=== PATIENT | female | born 1960 | race Caucasian/White ===

== ENCOUNTER 2019-05-09 09:42 | Outpatient (CLI) | payer OTHER, SELFPAY ==
--- NOTE | 2019-05-09 09:50 | XR_ITS ---
WS: [id number] CHEST 2 VIEWS HISTORY: RIB PAIN, LEFT SIDED, PNEUMONIA COMPARISON: 05/12/2015 Lungs: Lung volumes are significantly decreased. There is mild haziness over both lungs. No dense are a of consolidation. No pleural effusion or pneumothorax. Cardiac size: Normal. Mediastinum/Aorta: Mild atherosclerosis aorta. Bones: Normal. XR/XR chest 2V* [id number] IMPRESSION: 1. Study is limited by poor inspiration and decreased lung volumes. 2. Interstitial thickening would maybe improve with better inspiratory effort. Otherwise mild pneumonitis should be considered. No pneumonia.
== END 2019-05-09 09:43 | disposition home or self-care (01) ==
LOC: RADWPI 09:47
PROVIDERS: Family Provider Electrodiagnostic Medicine; PCP Electrodiagnostic Medicine; Visit Provider Electrodiagnostic Medicine
DX: R07.81 Pleurodynia (principal); J18.9 Pneumonia, unspecified organism
CPT/HCPCS: 71046

== ENCOUNTER 2020-01-26 14:43 | Outpatient (CLI) | payer BC, SELFPAY ==
--- NOTE | 2020-01-26 14:51 | MM_ITS ---
WS: [id number] BILATERAL DIGITAL SCREENING MAMMOGRAM WITH CAD CLINICAL INFORMATION: SCREENING HISTORY: Screening mammogram. No current complaints. COMPARISON: TECHNIQUE: Bilateral CC and MLO views. FINDINGS: Fatty-replaced breasts bilaterally. No suspicious focal mass, asymmetry, calcifications, or systems architect ural distortion. No evidence of malignancy. Stable intramammary lymph nodes. Benign Eggshell calcific ations right breast. Lucent centered calcification left breast. MM/[place] [id number] IMPRESSION: BI-RADS: 2-Benign FOLLOW UP: 1 Year Follow-up Recommend return to annual screening mammography.
== END 2020-01-26 14:44 | disposition home or self-care (01) ==
LOC: RADSHAW 14:46
PROVIDERS: Family Provider Electrodiagnostic Medicine; PCP Electrodiagnostic Medicine; Visit Provider Electrodiagnostic Medicine
DX: Z12.31 Encounter for screening mammogram for malignant neoplasm of breast (principal)
CPT/HCPCS: 77067

== ENCOUNTER 2020-10-24 13:41 | Outpatient (CLI) | payer OTHER, SELFPAY ==
--- NOTE | 2020-10-24 13:49 | XR_ITS ---
WS: [id number] PA and lateral chest, 10/24/2020 Clinical Data: DYSPNEA, CHRONIC BRONCHITIS Comparison: PA and lateral chest, 05/09/2019. Findings: There is right hilar enlargement which could indicate a right hilar mass or enlarged lymph nodes. The left hilum is normal. The lung peripheries are nonremarkable. The heart size is normal. Th e pulmonary vascularity is not increased. No pneumonia is seen. XR/XR chest 2V* [id number] Impression: 1. Right hilar enlargement which could indicate a hilar mass or lymph node enla rgement. 2. Recommend CT scan of the chest.
== END 2020-10-24 13:42 | disposition home or self-care (01) ==
LOC: RAD 13:46
PROVIDERS: PCP Electrodiagnostic Medicine; Visit Provider Electrodiagnostic Medicine
DX: R06.02 Shortness of breath (principal); J42 Unspecified chronic bronchitis
CPT/HCPCS: 71046

== ENCOUNTER 2020-11-08 08:11 | Outpatient (CLI) | payer OTHER, SELFPAY ==
--- NOTE | 2020-11-08 08:19 | CT_ITS ---
WS: [id number] Exam: CT chest w con* [id number] Date/Time of Exam: 11/08/2020 8:39 AM Reason For Exam: HILAR MASS, LUNG DLP: 904.[address] scans at [facility] use at least one of these dose optimization techniques: automat ed exposure control; mA and/or kV adjustment per patient size (includes targeted exams where dose is matched to clinical indication); or iterative reconstruction. Comparison 08/19/2012 No obvious lung mass noted. The main and central pulmonary arteries are enlarged which may account fo r findings on recent chest radiograph. This may indicate pulmonary hypertension. There are patchy andrew undglass infiltrates noted in the bilateral upper lobes, the lingula and right lower lobe. The airway is patent. Small emphysematous bleb in the lateral left lower lobe. The thoracic aorta is normal in caliber. No pleural or pericardial effusion. No significant mediastinal or hilar lymphadenopathy. No axillary lymphadenopathy. CT sections of the upper abdomen demonstrate hepatic steatosis. No destruct emma bone lesions are chest wall defects. CT/CT chest w con* [id number] IMPRESSION: 1. No sign of the lung mass or significant lymphadenopathy in the chest. 2. Prominent central and main pulmonary arteries which might be seen with pulmo nary hypertension. 3. Patchy groundglass infiltrates seen in the bilateral upper lobes, the lingul a and right lower lobe. The appearance is nonspecific however this might be see n with Covid pneumonia.
[2020-11-08] MEDS: iohexol 300 mg/mL 100 mL Btl IV (08:53)
== END 2020-11-08 08:12 | disposition home or self-care (01) ==
PROVIDERS: PCP Electrodiagnostic Medicine; Visit Provider Electrodiagnostic Medicine
DX: R91.8 Other nonspecific abnormal finding of lung field (principal)
CPT/HCPCS: 71260; Q9967

== ENCOUNTER → 2021-09-09 10:21 | Outpatient (BNVA) | payer OTHER, MEDICAID, SELFPAY | PROVIDERS: PCP Electrodiagnostic Medicine; Visit Provider Obstetrics & Gynecology | DX: N95.0 Postmenopausal bleeding (principal) | CPT/HCPCS: 87624 ==

== ENCOUNTER 2021-09-15 13:21 | Emergency (ER) | payer OTHER, MEDICAID, SELFPAY ==
[2021-09-15 13:29] VITALS: BP 158/99; PULSE 82; RESP 16; TEMP 36; O2SAT 95; BMI 43.9
[2021-09-15 13:51] VITALS: BP 158/99; PULSE 82; RESP 16; TEMP 36; O2SAT 95
--- NOTE | 2021-09-15 13:54 | W.ED.SKABFB ---
HPI - Skin/Abscess/Foreign Bdy General: Chief complaint: Ear Stated complaint: rash on ear and eye area Time Seen by Provider: 09/15/21 13:44 History of Present Illness: 60-year-old presents due to facial rash. States this started approximately a week ago. She initially went to PCP and provided with a steroid shot but this did not improve the rash. 2 days ago she was started on Bactrim but again states the rash is not improving. States it is not painful or pruritic. The rash is over the tip of her left ear tip of her nose and nasal ridge. Denies any eye pain or vision change. Denies any discharge from the eye. Denies any discharge from the ear. Denies any hearing change. Review of Systems Narrative: - CONSTITUTIONAL: Denies weight loss, fever and chills. - HEENT: Denies changes in vision and hearing. - RESPIRATORY: Denies SOB and cough. - CV: Denies palpitations and CP. - GI: Denies abdominal pain, nausea, vomiting and diarrhea. - : Denies dysuria and urinary frequency. - MSK: Denies myalgia and joint pain. - SKIN: As above. - NEUROLOGICAL: Denies headache, weakness, numbness and syncope. - PSYCHIATRIC: Denies suicidal ideation PFS ED PFSH: Medical History (Updated 09/15/21 @ 13:54 by Fahad Carey MD) Anxiety and depression Diagnosed in 2004 and managed by PMD. She does not have a therapist/psychiatrist Hypothyroidism Diagnosed in 2004 and is managed by her primary care provider No pertinent past medical history Denies diabetes, asthma, hypertension, seizures, DVT/PE PCP: Dr. Tolentino Surgical History (Updated 09/13/21 @ 14:31 by Janell Portillo MD) S/P section 1987---pfannienstiel Status post stereotactic brain biopsy Family History Family/Other Breast cancer maternal aunt, diagnosed at age 30 Mother Diabetes Hypertension Thyroid condition Grandmother Diabetes maternal Heart disease maternal Hypertension maternal Stroke maternal Grandfather Heart disease maternal Brother Hyperlipidemia Hypertension Sister Hyperlipidemia Hypertension Thyroid condition Denies family history of Colon cancer Ovarian cancer Uterine cancer Physical Exam Narrative: EXAM NARRATIVE: - GENERAL: Alert and oriented x 3. No acute distress. Well-nourished. - EYES: EOMI. Anicteric. - HENT: Atraumatic, no C-spine tenderness. Moist mucous membranes. No scleral icterus. No cervical lymphadenopathy. - LUNGS: Clear to auscultation bilaterally. No accessory muscle use. Equal lung sounds bilaterally. No respiratory distress. - CARDIOVASCULAR: Regular rate and rhythm. No murmur. No JVD. - ABDOMEN: Soft, non-tender and non-distended. Negative CVA tenderness bilaterally, no rebound or guarding, negative Goodman sign. No palpable masses. - EXTREMITIES: No edema. Non-tender. - SKIN: Small plaque erythematous rash over the apex of the left ear tip of the nose and nasal bridge. There are no vesicles. There is no extension to the eye. External auditory meatus is intact. There are no excoriations. The area is not raised or purulent. - NEUROLOGIC: No meningismus or focal neurological deficits. CN II-XII grossly intact. - PSYCHIATRIC: Cooperative. Appropriate mood and affect. Course Vital Signs: Vital signs: Vital Signs Temperature 96.8 F L 09/15/21 13:51 Pulse Rate 82 09/15/21 13:51 Respiratory Rate 16 09/15/21 13:51 Blood Pressure 158/99 09/15/21 13:51 Pulse Oximetry 95 09/15/21 13:51 MDM - Skin/Abscess/Foreign Bdy Medicial Decision Making 60-year-old presents due to facial rash. There is 3 distinct spots of rash. She states that she received steroids without improvement. She states she she is on the second day of Bactrim without improvement. Will change antibiotic to Doxy. At this time I do not see any signs of shingles. There is no signs of deeper tissue infection. No extension to the eyes. At this time I believe patient would be safe for discharge and outpatient follow-up. Return precautions provided. Plan was reviewed with the patient who expressed understanding. Questions answered. Patient will follow up with PCP. Patient discharged in stable condition. Discharge Plan Discharge Patient Disposition: Home Clinical Impression: Cellulitis Condition: Stable Prescriptions: New doxycycline hyclate 100 mg tablet 100 mg PO BID 7 Days Qty: 14 0RF No Action levothyroxine [Synthroid] 112 mcg tablet 112 mcg PO DAILY 0RF fluticasone furoate 27.5 mcg/actuation spray,suspension 1 spray intranasal DAILY 0RF Rx Instructions: into each nostril escitalopram oxalate 20 mg tablet 20 mg PO DAILY 0RF Discharge Orders: Discharge ED (Routine); Ordered 09/15/21 Ordered By: Fahad Carey Referrals: Michael Tolentino DO [Primary Care Provider] - 1-3 days Patient Instructions: Cellulitis (ED), Opioid Safety Coding Level of Care Code ED Sewage Reticulation Drafting Officer for Gregory Flor
[2021-09-15 14:05] VITALS: BP 158/99; PULSE 82; RESP 16; TEMP 36; O2SAT 95
== END 2021-09-15 14:06 | disposition home or self-care (01) ==
PROVIDERS: Emergency Provider Emergency Medicine; PCP Electrodiagnostic Medicine
DX: L03.211 Cellulitis of face (principal)
CPT/HCPCS: 99283

== ENCOUNTER → 2021-09-17 16:39 | Outpatient (BNVA) | payer OTHER, MEDICAID, SELFPAY | PROVIDERS: PCP Electrodiagnostic Medicine; Visit Provider Obstetrics & Gynecology | DX: N95.0 Postmenopausal bleeding (principal) | CPT/HCPCS: 88305 ==

== ENCOUNTER 2021-09-30 09:11 | Outpatient (CLI) | payer OTHER, MEDICAID, SELFPAY ==
--- NOTE | 2021-09-30 09:21 | MM_ITS ---
WS: [id number] BILATERAL SCREENING DIGITAL BREAST TOMOSYNTHESIS MAMMOGRAM WITH CAD HISTORY: Z12.39 - Encounter for other screening for malignant neoplasm. COMPARISON: 01/26/2020 and 11/09/2018 Bilateral CC and MLO views with tomosynthesis and synthetic mammography submitted. Computer aided det ection analyzed. Breast composition: There are scattered areas of fibroglandular density. No suspicious masses, microc alcifications or architectural distortion. Scattered calcifications within each breast. MM/[place] [id number] IMPRESSION: BI-RADS: 2-Benign FOLLOW UP: 1 Year Follow-up
== END 2021-09-30 09:12 | disposition home or self-care (01) ==
LOC: RAD 09:11
PROVIDERS: PCP Electrodiagnostic Medicine; Visit Provider Obstetrics & Gynecology
DX: Z12.31 Encounter for screening mammogram for malignant neoplasm of breast (principal)
CPT/HCPCS: 77063; 77067

== ENCOUNTER 2022-04-03 08:24 | Outpatient (CLI) | payer MEDICAID, SELFPAY | END 2022-04-03 08:25 | disposition home or self-care (01) | PROVIDERS: PCP Electrodiagnostic Medicine; Visit Provider Electrodiagnostic Medicine | DX: J84.9 Interstitial pulmonary disease, unspecified (principal) | CPT/HCPCS: 94060; 94726; 94729; J7613 ==

== ENCOUNTER 2022-06-17 08:59 | Outpatient (CLI) | payer MEDICAID, SELFPAY ==
--- NOTE | 2022-06-17 09:15 | XR_ITS ---
WS: [id number] XR hip RT 2-3V wo/w pel* [id number] REASON FOR EXAM: right hip pain FINDINGS: No fracture or focal bone lesion. The joint spaces relatively intact. There is mild subchondral sclerosis in the acetabulum. No soft tissue abnormality. XR/XR hip RT 2-3V wo/w pel* [id number] IMPRESSION: Mild osteoarthritis of the right hip.
== END 2022-06-17 09:00 | disposition home or self-care (01) ==
PROVIDERS: PCP Family Medicine; Visit Provider Family Medicine
DX: M16.11 Unilateral primary osteoarthritis, right hip (principal)
CPT/HCPCS: 73502

== ENCOUNTER → 2022-06-24 09:08 | Outpatient (BNVA) | payer MEDICAID, SELFPAY | PROVIDERS: PCP Family Medicine; Visit Provider Family Medicine | DX: Z13.6 Encounter for screening for cardiovascular disorders (principal); E03.9 Hypothyroidism, unspecified; J84.9 Interstitial pulmonary disease, unspecified; R06.09 Other forms of dyspnea; E66.01 Morbid (severe) obesity due to excess calories; M16.7 Other unilateral secondary osteoarthritis of hip | CPT/HCPCS: 80053; 80061; 84443; 85025 ==

== ENCOUNTER → 2022-08-28 15:18 | Outpatient (BNVA) | payer MEDICAID, SELFPAY | PROVIDERS: PCP Family Medicine; Visit Provider Family Medicine | DX: E03.9 Hypothyroidism, unspecified (principal) | CPT/HCPCS: 84443 ==

== ENCOUNTER 2022-09-17 06:15 | Outpatient (CLI) | payer OTHER, MEDICAID, SELFPAY ==
--- NOTE | 2022-09-17 06:30 | USCV_ITS ---
Rylee Veloz Age: 61 Gender: F : 1960 Exam Date: 09/17/2022 06:40 Ordering Phys: Stefanie Villafuerte DO Technologist: FADI [place] [facility] [place]: UGALDE BP: 124 / 74 HR: 74 Rhythm: Sinus Technical Quality: Adequate MEASUREMENTS (Male / Female) Normal Values 2D ECHO LVOT Diameter 2.0 cm LV Ejection Fraction MOD 2C 63.7 % LV Ejection Fraction 2C AL 63.7 % LA Diameter 2.7 cm LA Width 2.8 cm LA Height 4.9 cm RA Width 2.4 cm RA Height 4.4 cm Aorta at Sinotubular Diameter 1.9 cm IVC Diameter 1.6 cm M-MODE Aortic Annulus Diameter 2.7 cm LA Ao Ratio MM 1.0 MV E Point Septal Separation 0.6 cm DOPPLER AV Peak Velocity 132.0 cm/s LVOT Peak Velocity 83.0 cm/s AV Area Cont Eq vti 1.8 cm squared AV Area Cont Eq pk 2.0 cm squared MV Peak Velocity 89.0 cm/s MV Area PHT 2.8 cm squared Mitral E to A Ratio 0.9 MV E' Velocity 37.5 cm/s Mitral E to MV E' Ratio 8.1 Mitral E to LV E' Lateral Ratio 8.0 Mitral E to LV E' Septal Ratio 8.2 TR Peak Velocity 227.8 cm/s TR Peak Gradient 20.8 mmHg TR Mean Velocity 204.0 cm/s TR Mean Gradient 16.6 mmHg TR Velocity Time Integral 86.7 cm TV Peak E Velocity 53.0 cm/s Right Atrial Pressure 3.0 mmHg Pulmonary Artery Systolic Pressu 23.8 mmHg PV Peak Velocity 121.0 cm/s RV Acceleration Time 0.1 s RV Ejection Time 0.3 s RV AcT/ET 0.3 FINDINGS Left Ventricle Left ventricle is normal in size. LV systolic function is normal with EF of 60 to 65%. No regional wall motion abnormalities are seen Right Ventricle Grossly normal size and function Right Atrium Normal in size Left Atrium Normal in size Mitral Valve Structurally normal mitral valve. Trace mitral regurgitation. Aortic Valve Structurally normal aortic valve. No significant stenosis or regurgitation. Tricuspid Valve Mild tricuspid regurgitation. Pulmonary artery systolic pressure is normal. Pulmonic Valve Not well visualized Pericardium Normal Aorta Normal in size IVC Appears to be normal CONCLUSIONS Technically limited quality echocardiogram because of poor ultrasonic windows. LV systolic function is normal with EF of 60 to 65%. Trace mitral regurgitation Mild tricuspid regurgitation No comparison studies are available Tree Melendez MD (Electronically Signed) Final Date: 19 September 2022 17:41 S
== END 2022-09-17 06:16 | disposition home or self-care (01) ==
PROVIDERS: PCP Family Medicine; Visit Provider Family Medicine
DX: R06.09 Other forms of dyspnea (principal); I07.1 Rheumatic tricuspid insufficiency
CPT/HCPCS: 80053; 80061; 84443; 85025; 93306

== ENCOUNTER → 2022-12-25 08:21 | Outpatient (BNVA) | payer OTHER, MEDICAID, SELFPAY | PROVIDERS: PCP Family Medicine; Visit Provider Family Medicine | DX: E03.9 Hypothyroidism, unspecified (principal); J84.9 Interstitial pulmonary disease, unspecified; E66.9 Obesity, unspecified | CPT/HCPCS: 84443 ==

== ENCOUNTER 2023-06-15 14:05 | Outpatient (CLI) | payer OTHER, SELFPAY ==
--- NOTE | 2023-06-15 14:10 | XRR_ITS ---
PROCEDURE INFORMATION: Exam: XR Chest Exam date and time: 06/15/2023 2:13 PM Age: 62 years old Clinical indication: Condition or disease; Lung condition and disease; Other: Interstitial lung disease; Additional info: Interstitial lung disease followup TECHNIQUE: Imaging protocol: Radiologic exam of the chest. Views: 2 views. COMPARISON: CR XR chest 2V* [id number] 03/12/2022 11:19 AM FINDINGS: Lungs: Both lungs demonstrate diffuse hazy interstitial fibrosis. The fibrosis appears to have worsened somewhat over the past 2 years. In addition, there is suggestion of right hilar mass effect on today's exam. This area appears more prominent when compared to previous studies. Pleural spaces: Unremarkable. No pleural effusion. No pneumothorax. Heart/Mediastinum: Unremarkable. No cardiomegaly. Bones/joints: Unremarkable. XR/XR chest 2V* [id number] IMPRESSION: 1. Bilateral interstitial fibrosis which has worsened over 2 years 2. There is suggestion of right hilar mass effect. I am uncertain as to whether this represents a true mass versus prominent vasculature. At some point, you may wish to obtain a CT for further evaluation.
== END 2023-06-15 14:06 | disposition home or self-care (01) ==
LOC: RAD 14:07
PROVIDERS: PCP Family Medicine; Visit Provider Family Medicine
DX: J84.9 Interstitial pulmonary disease, unspecified (principal)
CPT/HCPCS: 71046; 80053; 80061; 82274; 82306; 82607; 84443; 85025

== ENCOUNTER 2023-06-26 14:25 | Outpatient (CLI) | payer OTHER, SELFPAY ==
--- NOTE | 2023-06-26 14:30 | MM_ITS ---
WS: [id number] BILATERAL 3D TOMOSYNTHESIS DIGITAL SCREENING MAMMOGRAM WITH CAD CLINICAL INFORMATION: breast cancer screening HISTORY: Screening mammogram. No current complaints. COMPARISON: 09/30/2021 TECHNIQUE: Bilateral CC and MLO views. FINDINGS: Fatty-replaced breasts bilaterally. No suspicious focal mass, asymmetry, calcifications, or senior user experience architect ural distortion. No evidence of malignancy. Incidental punctate and lucent centered calcifications. B enign eggshell calcifications RIGHT breast are stable. A few incidental tiny punctate calcifications. IMPRESSION: MM/[place] [id number] BI-RADS: 2-Benign FOLLOW UP: 1 Year Follow-up Recommend return to annual screening mammography.
== END 2023-06-26 14:26 | disposition home or self-care (01) ==
LOC: RAD 14:25
PROVIDERS: PCP Family Medicine; Visit Provider Family Medicine
DX: Z12.31 Encounter for screening mammogram for malignant neoplasm of breast (principal)
CPT/HCPCS: 77063; 77067

== ENCOUNTER → 2024-01-11 14:51 | Outpatient (BNVA) | payer OTHER, SELFPAY | PROVIDERS: PCP Family Medicine; Visit Provider Family Medicine | DX: Z12.11 Encounter for screening for malignant neoplasm of colon (principal) | CPT/HCPCS: 82274 ==

== ENCOUNTER 2024-01-13 07:06 | Outpatient (CLI) | payer OTHER, SELFPAY ==
[2024-01-13 07:27] VITALS: PULSE 90; RESP 18; O2SAT 90
[2024-01-13] MEDS: albuterol 2.5 mg/3 mL Neb INHALATION (07:27)
== END 2024-01-13 07:07 | disposition home or self-care (01) ==
PROVIDERS: PCP Family Medicine; Visit Provider Family Medicine
DX: J84.9 Interstitial pulmonary disease, unspecified (principal); R94.2 Abnormal results of pulmonary function studies
CPT/HCPCS: 94060

== ENCOUNTER 2024-02-18 13:13 | Outpatient (CLI) | payer OTHER, SELFPAY | END 2024-02-18 13:14 | disposition home or self-care (01) | LOC: SLEEP 13:14 | PROVIDERS: PCP Family Medicine; Visit Provider Family Medicine | DX: G47.36 Sleep related hypoventilation in conditions classified elsewhere (principal) | CPT/HCPCS: G0399 ==

== ENCOUNTER 2024-03-03 07:56 | Outpatient (CLI) | payer OTHER, SELFPAY ==
--- NOTE | 2024-03-03 08:00 | CT_ITS ---
WS: [id number] CT chest w con* [id number] HISTORY: intersitial lung disease, hypoxia TECHNIQUE: Axial imaging performed through the thorax. Coronal and sagittal reformats are submitted. All CT scans at [facility] use at least one of these dose optimization techniques: automated exposure control; mA and/or kV adjustment per patient size (includes targeted exams where dose is mat ched to clinical indication); or iterative reconstruction. CONTRAST: Omnipaque 350; 100 mL IV. DLP: 492.37 mGy.cm COMPARISON: 11/08/2020 Lungs and central airway: Lung volumes are decreased. Hazy reticulations within both lungs. Greatest distribution within the upper lung miller. This study was not performed as a high-resolution CT but t here does appear to be honeycombing at the RIGHT lung base and also in the upper lung miller. Tractio n bronchiectasis also noted in the RIGHT upper and RIGHT lower lobes. Pleura: Normal. No pleural effusion. Heart and pericardium: Normal size heart with no pericardial effusion. Mediastinum and ping: Indeterminate mediastinal and hilar lymph nodes measure up to 11 mm. Lymph node size and number has increased since 11/08/2020. Vessels: Dilated pulmonary artery. Pulmonary artery measures 4.0 cm. Diameter of the pulmonary artery has not changed since 11/08/2020. Chest wall and lower neck: No soft tissue masses. Upper abdomen: Small hiatal hernia. Visualized liver is normal. No adrenal mass. Osseous structures: No destructive process. CT/CT chest w con* [id number] IMPRESSION: 1. Low lung volumes with bilateral upper and lower lobe hazy reticulations, tr action bronchiectasis and honeycombing. These findings are most typical for UIP , NSIP or respiratory bronchiolitis. Most significant changes in the RIGHT uppe r and lower lobes. 2. Pulmonary hypertension. Pulmonary artery is dilated to 4.0 cm. 3. Mildly prominent mediastinal and hilar lymph nodes. Indeterminate lymph nod es with mild progression in size and number since 2020.
[2024-03-03] MEDS: iohexol 350 mg/mL 500 mL Btl (per mL) IV (08:57)
[2024-03-03 10:38] LABS: Blood Urea Nitrogen 12 mg/dL (8-23); Glomerular Filtration Rate 72.4 mL/min (90-130)
== END 2024-03-03 07:57 | disposition home or self-care (01) ==
PROVIDERS: PCP Family Medicine; Visit Provider Family Medicine
DX: J84.9 Interstitial pulmonary disease, unspecified (principal); J47.9 Bronchiectasis, uncomplicated; R91.8 Other nonspecific abnormal finding of lung field; I28.8 Other diseases of pulmonary vessels; R59.0 Localized enlarged lymph nodes; K44.9 Diaphragmatic hernia without obstruction or gangrene
CPT/HCPCS: 71260; 82565; 84520

== ENCOUNTER 2024-06-15 09:10 | Outpatient (CLI) | payer OTHER, SELFPAY ==
[2024-06-15 09:36] VITALS: PULSE 82; RESP 18; O2SAT 95
[2024-06-15] MEDS: albuterol 2.5 mg/3 mL Neb INHALATION (09:36)
--- NOTE | 2024-06-15 10:01 | CT_ITS ---
WS: [id number] CT CHEST CT-HIGH RESOLUTION, NONCONTRAST. HISTORY: Interstitial lung disease. Technique: High-resolution chest CT is performed in inspiration, expiration, supine and prone positioning. All CT scans at [facility] use at least one of these dose optimization techniques: automated exposure control; mA and/or kV adjustment per patient size (includes targeted exams where dose is matched to clinical indication); or iterative reconstruction. DLP: 1532.64 mGy.cm COMPARISON: 03/03/2024 Findings: Lung volumes are decreased. Bilateral pulmonary fibrosis is similar to the prior examination from 03/03/2024. There is bilateral and multi lobar pulmonary fibrosis with traction bronchiectasis and honeycombing. Probably the most significant changes are in the RIGHT upper lobe, RIGHT middle and RIGHT lower lobe. No overlying superimposed consolidation or pneumonia. There are a few scattered areas of groundglass attenuation and mosaic attenuation. Honeycombing is more prevalent in the RIGHT upper lobe. No significant honeycombing at the lung bases. With prone positioning no significant impro vement in the areas of groundglass attenuation or fibrosis. No significant change in volume during expiration. Dilated pulmonary artery measuring 4.3 cm. RIGHT and LEFT pulmonary arteries are dilated also. Mild atherosclerosis aorta. Small mediastinal and hilar lymph nodes. Lymph nodes have increased in size and number since the prior exam suggesting a superimposed acute inflammatory process. Heart remains normal size. Upper abdomen is negative. CT/CT chest wo con [id number] Impression: 1. Low lung volumes bilaterally with fibrosis, traction bronchiectasis and hon eycombing. Honeycombing is more prevalent in the RIGHT upper lobe than at the l kenyetta bases. Upper lobe predominance of honeycombing is more typical with inhalat ion disease, hypersensitivity pneumonia and NSIP. Differential also includes UI P. 2. No superimposed pneumonia is identified. 3. Mediastinal and hilar lymph nodes are slightly more prominent. 4. Pulmonary hypertension, pulmonary artery 4.3 cm.
== END 2024-06-15 09:11 | disposition home or self-care (01) ==
PROVIDERS: PCP Family Medicine; Visit Provider Physician Assistant Medical
DX: J84.9 Interstitial pulmonary disease, unspecified (principal); J96.01 Acute respiratory failure with hypoxia; R91.8 Other nonspecific abnormal finding of lung field; J84.10 Pulmonary fibrosis, unspecified; J47.9 Bronchiectasis, uncomplicated; R59.0 Localized enlarged lymph nodes; I27.20 Pulmonary hypertension, unspecified; I28.1 Aneurysm of pulmonary artery; I70.0 Atherosclerosis of aorta; R94.2 Abnormal results of pulmonary function studies
CPT/HCPCS: 71250; 94060; 94726; 94729; J7613

== ENCOUNTER 2024-06-30 08:16 | Outpatient (CLI) | payer OTHER, SELFPAY ==
--- NOTE | 2024-06-30 08:22 | USCV_ITS ---
Rylee Veloz Age: 63 Gender: F : 1960 Exam Date: 06/30/2024 08:44 Ordering Phys: Justin Bonilla Technologist: KOBI [place] [facility] [place]: Interstitial Lung DZ BP: 130 / 78 HR: Rhythm: Sinus Technical Quality: Adequate MEASUREMENTS (Male / Female) Normal Values 2D ECHO LV Diastolic Diameter PLAX 3.9 cm 4.2 - 5.9 / 3.9 - 5.3 cm IVS Diastolic Thickness 1.1 cm 0.6 - 1.0 / 0.6 - 0.9 cm IVS Systolic Thickness 1.8 cm LVPW Diastolic Thickness 0.9 cm 0.6 - 1.0 / 0.6 - 0.9 cm LVPW Systolic Thickness 1.5 cm LVOT Diameter 1.8 cm LV Ejection Fraction 2D Teich 64.8 % LV Ejection Fraction MOD 4C 69.8 % LV Ejection Fraction MOD 2C 64.5 % LV Ejection Fraction 2C AL 65.0 % LA Diameter 3.6 cm RA Systolic Volume 4C AL 53.7 ml RA Systolic Volume 4C MOD 52.5 ml LA Sys Volume AL 73.0 cm cubed LA Sys Volume Index AL 33.6 cm cubed/m squared Aorta at Sinotubular Diameter 1.6 cm M-MODE LA Ao Ratio MM 2.0 AV Cusp Separation MM 1.3 cm FINDINGS Left Ventricle Left ventricular ejection fraction is estimated at 65 %. No regional wall motion abnormalities. Right Ventricle Normal right ventricular size and systolic function. Right Atrium The right atrium is normal in size. Left Atrium The left atrium is normal in size. Mitral Valve No gross abnormalities noted Aortic Valve No gross abnormalities noted Tricuspid Valve No gross abnormalities noted Pulmonic Valve Pulmonic valve not well visualized. Pericardium Normal pericardium without effusion. Aorta Normal aortic annulus size. IVC The inferior vena cava appears normal. CONCLUSIONS Normal LV size with normal left ventricular ejection fraction of 65 %. No regional wall motion abnormalities. No gross valvular abnormalities Normal cardiac chamber sizes. There is no pericardial effusion. Compared to the study from 09/17/2022, no significant change in the 2D findings. Dr Willis Zamorano MD FAC (Electronically Signed) Final Date: 03 July 2024 21:11 S
== END 2024-06-30 08:17 | disposition home or self-care (01) ==
LOC: RAD 08:18
PROVIDERS: PCP Family Medicine; Visit Provider Physician Assistant Medical
DX: J84.9 Interstitial pulmonary disease, unspecified (principal); J96.01 Acute respiratory failure with hypoxia
CPT/HCPCS: 93308

== ENCOUNTER 2024-07-04 15:14 | Outpatient (CLI) | payer OTHER, SELFPAY ==
--- NOTE | 2024-07-04 15:21 | XR_ITS ---
WS: [id number] Exam: XR chest 2V* [id number] Date/Time of Exam: 07/04/2024 3:24 PM Reason For Exam: increased sob, chronic pulmonary fibrosis Comparison 06/15/2023. Extensive interstitial pulmonary fibrosis and honeycombing noted throughout both lungs. There appear to be mild interstitial infiltrates now in the lower LEFT lung as well as the RIGHT lung suggesting superimposed pneumonia. Heart size is normal. The mediastinum is normal in contour. No pleural effusion or pneumothorax. XR/XR chest 2V* [id number] IMPRESSION: 1. Suspect bilateral interstitial pneumonia superimposed over extensive interst itial fibrosis and honeycombing throughout both lungs.
== END 2024-07-04 15:15 | disposition home or self-care (01) ==
PROVIDERS: PCP Family Medicine; Visit Provider Family Medicine
DX: J84.9 Interstitial pulmonary disease, unspecified (principal); R06.2 Wheezing; R09.02 Hypoxemia; J84.10 Pulmonary fibrosis, unspecified; J98.4 Other disorders of lung
CPT/HCPCS: 71046

== ENCOUNTER → 2024-09-20 08:19 | Outpatient (BNVA) | payer OTHER, SELFPAY | PROVIDERS: PCP Family Medicine; Visit Provider Emergency Medicine | DX: R39.9 Unspecified symptoms and signs involving the genitourinary system (principal) | CPT/HCPCS: 81000; 87086 ==

== ENCOUNTER → 2024-10-03 14:15 | Outpatient (BNVA) | payer OTHER, SELFPAY | PROVIDERS: PCP Family Medicine; Visit Provider Family Medicine | DX: I10 Essential (primary) hypertension (principal); E03.9 Hypothyroidism, unspecified | CPT/HCPCS: 80053; 80061; 84443; 85025 ==

== ENCOUNTER 2024-10-24 16:38 | Outpatient (CLI) | payer OTHER, SELFPAY | END 2024-10-24 16:39 | disposition home or self-care (01) | LOC: SLEEP 16:39 | PROVIDERS: PCP Family Medicine; Visit Provider Physician Assistant Medical | DX: J84.9 Interstitial pulmonary disease, unspecified (principal); J96.10 Chronic respiratory failure, unspecified whether with hypoxia or hypercapnia | CPT/HCPCS: 94762 ==

== ENCOUNTER → 2024-12-01 12:38 | Outpatient (BNVA) | payer OTHER, SELFPAY | PROVIDERS: PCP Family Medicine; Visit Provider Internal Medicine | DX: J44.9 Chronic obstructive pulmonary disease, unspecified (principal) | CPT/HCPCS: 36415; 83880 ==

== ENCOUNTER 2024-12-09 10:57 | Outpatient (CLI) | payer OTHER, SELFPAY | END 2024-12-09 10:58 | disposition home or self-care (01) | LOC: RAD 10:58 | PROVIDERS: PCP Family Medicine; Visit Provider Internal Medicine | DX: J84.10 Pulmonary fibrosis, unspecified (principal) | CPT/HCPCS: 93306 ==

== ENCOUNTER 2024-12-28 08:00 | Outpatient (CLI) | payer OTHER, SELFPAY ==
[2024-12-28 08:33] VITALS: PULSE 81; RESP 18; O2SAT 94
== END 2024-12-28 08:01 | disposition home or self-care (01) ==
LOC: RT 08:01
PROVIDERS: PCP Family Medicine; Visit Provider Internal Medicine
DX: J44.9 Chronic obstructive pulmonary disease, unspecified (principal); R94.2 Abnormal results of pulmonary function studies
CPT/HCPCS: 94060; 94726; 94729; J7613

== ENCOUNTER 2025-01-31 19:50 | Outpatient (CLI) | payer OTHER, SELFPAY | END 2025-01-31 19:51 | disposition home or self-care (01) | LOC: SLEEP 19:51 | PROVIDERS: PCP Family Medicine; Referring Provider Internal Medicine; Visit Provider Internal Medicine Pulmonary Disease | DX: G47.33 Obstructive sleep apnea (adult) (pediatric) (principal); G47.36 Sleep related hypoventilation in conditions classified elsewhere | CPT/HCPCS: 95810 ==

== ENCOUNTER 2025-02-02 13:20 | Outpatient (RCR) | payer OTHER, SELFPAY | END 2025-02-12 23:59 | disposition home or self-care (01) | LOC: CR 13:20 | PROVIDERS: PCP Family Medicine; Referring Provider Internal Medicine; Visit Provider Internal Medicine | DX: J44.9 Chronic obstructive pulmonary disease, unspecified (principal) | CPT/HCPCS: 94626 ==

== ENCOUNTER 2025-02-13 09:32 | Outpatient (RCR) | payer OTHER, SELFPAY | END 2025-03-15 23:59 | disposition home or self-care (01) | LOC: CR 09:32 | PROVIDERS: PCP Family Medicine; Referring Provider Internal Medicine; Visit Provider Internal Medicine | DX: J44.9 Chronic obstructive pulmonary disease, unspecified (principal) | CPT/HCPCS: 94626 ==